=== PATIENT | female | born 1950 ===

== ENCOUNTER → 2020-08-19 | Outpatient (CLI) | payer MEDICARE | END | disposition home or self-care (01) | LOC: RAD 10:39 | PROVIDERS: ATTEND Nurse Practitioner Family | DX: M25.532 Pain in left wrist (principal) ==

== ENCOUNTER 2020-10-20 14:23 | Emergency (ER) | payer OTHER, MEDICARE ==
[~2020-10-20] VITALS: Ht 170.2 cm; Wt 88.9 kg
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
--- NOTE | 2020-10-20 15:51 | NUR ---
PT IN CT
--- NOTE | 2020-10-20 17:12 | NUR ---
PT RESTING, RESULTS COMPLETED FROM CT. TO DC SOON
[2020-10-20 17:13] VITALS: BP 155/95
[2020-10-20] MEDS ORDERED: KETOROLAC 30 MG/1 ML ONE (17:33)
[2020-10-20] MEDS ORDERED: OXYcodone/APAP 5/325MG TABLET ONE (17:34)
--- NOTE | 2020-10-20 17:43 | NUR ---
MEDICATED PER ORDERS
--- NOTE | 2020-10-20 17:44 | NUR ---
Patient given discharge instructions and they have confirmed that they understand the instructions. Patient ambulatory with steady gait. Son driving patient home.
[2020-10-20] MEDS ORDERED: OXYcodone/APAP 5/325MG TABLET PO ONE (18:00)
[2020-10-20] MEDS ORDERED: KETOROLAC 30 MG/1 ML IM ONE (18:00)
== END 2020-10-20 17:48 | disposition home or self-care (01) ==
LOC: ED 17:42
DX: S16.1XXA Strain of muscle, fascia and tendon at neck level, initial encounter (principal); S23.3XXA Sprain of ligaments of thoracic spine, initial encounter; M54.5 Low back pain; R51.9 Headache, unspecified; V59.69XA Unspecified occupant of pick-up truck or van injured in collision with other motor vehicles in traffic accident, initial encounter; Y93.89 Activity, other specified; Y92.89 Other specified places as the place of occurrence of the external cause; Y99.8 Other external cause status
CPT/HCPCS: 70450; 72125; 96372; 99285; J1885